=== PATIENT | female | born 1950 | race Caucasian/White ===

== ENCOUNTER → 2016-03-16 | Outpatient (CLI) | payer OTHER ==
[~2016-03-16] MED LIST: ARIP2TAB3 PO; ASPI81TA28 PO; ATR25 PO; EFFSR375 PO
--- NOTE | 2016-03-16 16:27 | MAMMOGRAPHY REPORT ---
BILATERAL DIGITAL SCREENING MAMMOGRAM TOMOSYNTHESIS WITH CAD: 03/16/2016 CLINICAL HISTORY: Routine screening. Patient has no complaints. TECHNIQUE: Breast tomosynthesis in addition to standard 2D mammography was performed. Current study was also evaluated with a Computer Aided Detection (CAD) system. COMPARISON: Comparison is made to exams dated: 03/08/2015 mammogram, 07/07/2012 mammogram, 07/10/2013 mammogram, 06/14/2011 mammogram, 06/02/2010 mammogram, and 02/20/2010 mammogram - [facility]. BREAST COMPOSITION: There are scattered areas of fibroglandular density in both breasts. FINDINGS: No suspicious masses, calcifications, or areas of architectural distortion are noted in e ither breast. There has been no significant interval change compared to prior exams. IMPRESSION: ACR BI-RADS CATEGORY 1: NEGATIVE There is no mammographic evidence of malignancy. A 1 year screening mammogram is recommended. The p atient will receive written notification of the results. Approximately 10% of breast cancers are not detected with mammography. A negative mammographic repor t should not delay biopsy if a clinically suggestive mass is present. Litzy Tidwell M.D. ah/:03/16/2016 15:04:43 Digital Media Designer: Arin KERN(Salomon)(M), [facility] letter sent: Normal 1/2 BI-RADS Code: ACR BI-RADS Category 1: Negative
== END | disposition home or self-care (01) ==
LOC: C.MAMM 08:42
PROVIDERS: ATTEND Internal Medicine
DX: Z12.31 Encounter for screening mammogram for malignant neoplasm of breast (principal)

== ENCOUNTER → 2017-03-11 | Outpatient (CLI) | payer OTHER | END | disposition home or self-care (01) | LOC: C.PAPS 09:56 | PROVIDERS: ATTEND Obstetrics & Gynecology | DX: Z12.4 Encounter for screening for malignant neoplasm of cervix (principal) ==

== ENCOUNTER → 2017-05-01 | Outpatient (CLI) | payer OTHER ==
[~2017-05-01] MED LIST changes: -EFFSR375 PO; +VENL-57 PO
--- NOTE | 2017-05-02 08:04 | MAMMOGRAPHY REPORT ---
BILATERAL DIGITAL SCREENING MAMMOGRAM TOMOSYNTHESIS WITH CAD: 05/01/2017 CLINICAL HISTORY: Routine screening. Patient has no complaints. TECHNIQUE: Breast tomosynthesis in addition to standard 2D mammography was performed. Current study was also evaluated with a Computer Aided Detection (CAD) system. COMPARISON: Comparison is made to exams dated: 03/16/2016 mammogram, 03/08/2015 mammogram, 07/10/2013 m ammogram, 07/07/2012 mammogram, 06/14/2011 mammogram, and 06/09/2010 ultrasound - [facility]. BREAST COMPOSITION: There are scattered areas of fibroglandular density in both breasts. FINDINGS: No suspicious masses, calcifications, or areas of architectural distortion are noted in ei ther breast. There has been no significant interval change compared to prior exams. Scattered bilater al benign-appearing calcifications are not significantly changed. IMPRESSION: ACR BI-RADS CATEGORY 2: BENIGN There is no mammographic evidence of malignancy. A 1 year screening mammogram is recommended. The pa tient will receive written notification of the results. Approximately 10% of breast cancers are not detected with mammography. A negative mammographic report should not delay biopsy if a clinically suggestive mass is present. Litzy Tidwell M.D. /:05/01/2017 14:53:37 Instructional Technology Facilitator: Socorro Bernabe, [facility] letter sent: Normal 1/2 BI-RADS Code: ACR BI-RADS Category 2: Benign
== END | disposition home or self-care (01) ==
LOC: C.MAMM 14:34
PROVIDERS: ATTEND Internal Medicine
DX: Z12.31 Encounter for screening mammogram for malignant neoplasm of breast (principal)

== ENCOUNTER 2023-06-07 10:56 | Inpatient (IN) ==
[2023-06-07 11:53] LABS: Basophils # (auto) 0.04 K/uL (0.00-0.20); Basophils % (auto) 0.3 %; Eosinophils # (auto) 0.05 K/uL (0.00-0.50); Eosinophils % (auto) 0.4 %; Hemoglobin 13.5 g/dl (12.0-16.0); Immature Granulocytes # (auto) 0.08 K/uL (0.01-0.20); Immature Granulocytes % (auto) 0.6 %; Lymphocytes # (auto) 1.78 K/uL (1.20-3.40); Lymphocytes % (auto) 13.8 %; Mean Corpuscular Hemoglobin 29.9 pg (25.0-34.0); Mean Corpuscular Hgb Conc 32.9 g/dL (32.0-36.0); Mean Corpuscular Volume 90.7 fL (80.0-100.0); Mean Platelet Volume 9.9 fL (9.4-12.4); Monocytes # (auto) 0.93 K/uL (0.11-0.59); Monocytes % (auto) 7.2 %; Neutrophils % (auto) 77.7 %; Platelet Count 310 K/uL (130-400); RDW Coefficient of Variation 12.9 % (11.5-14.5); RDW Standard Deviation 42.5 fL (36.4-46.3); Red Blood Count 4.52 M/uL (4.20-5.40); White Blood Count 12.88 K/ul (4.8-10.8)
[2023-06-07 12:01] LABS: Appearance Urine Clear (Clear); Bacteria Urine Automated None Seen (None Seen); Bilirubin Urine Negative (Negative); Blood Urine Negative (Negative); Cast Urine Automated 0-2 /lpf (0-2); Color Urine Dark Yellow; Epithelial Cell Urine Auto 0-2 /hpf (0-2); Glucose Urine UA Negative (Negative); Ketones Urine 1+ (Negative); Leukocyte Esterase Urine Negative (Negative); Nitrite Urine Negative (Negative); Protein Urine Trace (Negative); RBC Urine Automated 0-2 /hpf (0-2); Specific Gravity Urine 1.019 (1.000-1.030); Urobilinogen Urine Negative (Negative); WBC Urine Automated 0-5 /hpf (0-5); pH Urine 5.5 (4.5-7.5)
[2023-06-07 12:11] LABS: Albumin Globulin Ratio 1.1 (0.9-2); Albumin Level 4.1 gm/dl (3.4-5.0); BUN Creatinine Ratio 19.6 (10-20); Bilirubin,Total 1.1 mg/dl (0.2-1.0); Calcium 9.6 mg/dl (8.6-10.3); Creatinine Clr Calc Pharmacy 56.1 ml/min; Est GFR (African American) 73.1 ml/min; Est GFR (Non-African American) 63.1 ml/min; Globulin 3.7 gm/dl (2.5-4.0); Potassium 3.6 mmol/L (3.5-5.1); Total Protein 7.8 gm/dl (6.0-8.3)
--- NOTE | 2023-06-07 12:54 | Emergency Department Note ---
Impression & Plan Acute diverticulitis ED Provider Note NAME: JENNIFER SUN AGE: 72 SEX: F : 1950 ARRIVES VIA: Walk-In INFORMANT: Patient, ED PROVIDER(S): Prema Dietrich MD CHIEF COMPLAINT: Lower abdominal pain HPI: This is a 72-year-old female presenting for lower abdominal pain. Patient states that 1 to 2 days ago she was mowing her lawn when she had a pothole and the handle of the lawnmower struck her lower abdomen. She noticed immediate pain however over the past 1 to 2 days it has been significantly worsening. Now whenever she moves it is significant painful. Pressing on this area also hurts. Pain is acting better and actually getting worse. She notes dark urine including history of dark red in etiology. Denies any burning or pain with urination. Also notes new or back pain over the past 1 day as well in her lower back. No blood thinners on board. ROS: See above HPI for pertinent positives & negatives. A total of 10 systems reviewed and were otherwise negative. PAST MEDICAL HISTORY: See Below PAST SURGICAL HISTORY: See Below FAMILY HISTORY: See Below SOCIAL HISTORY: See Below HOME MEDICATIONS: See Below ALLERGIES: See Below VITALS: See Below PHYSICAL EXAMINATION: General: resting comfortably in no acute distress Head: Normocephalic and atraumatic Eyes: Normal inspection, extraocular muscles intact Ear, nose, throat: Normal external exam Neck: Normal range of motion Respiratory: lungs clear to auscultation bilaterally Cardiovascular: Regular rate/rhythm, no murmur GI: Diffusely tender, significant lower quadrant with voluntary guarding Extremities: nontender, moves all extremities Neuro: The patient awake and alert, appropriately conversive, no focal deficits, symmetric faces Skin: Warm, dry, and intact MEDICAL DECISION MAKING: This is a 72-year-old female sent for lower abdominal pain after lawnmower injury. Will do CT of the abdomen/pelvis to help elucidate further. Consider bladder rupture, abdominal bleed, damage underlying structures, hematoma -CT imaging reveals leukocytosis 12.8. Otherwise no electrolyte disturbances. Urinalysis reveals no UTI -CT imaging reveals an acute diverticulitis with small foci of air concerning for microperforation versus inflamed diverticulum -Discussed care with Dr. Montelongo including patient's history, CT imaging and blood work who recommends antibiotics. The patient can be admitted with surgical consult if warranted or discharge if appropriate as per his recommendations. With patient's current pain and after discussion with patient, she would also prefer to be admitted. -Patient admitted under Dr. Angel Differential diagnosis: See above ER treatment provided: See below Diagnostics interpreted by me: ECG: None Cardiac Monitoring: An order was placed for continuous cardiac monitoring. The monitor shows a rate of 71 with sinus rhythm. Laboratory studies: As stated above and show below. Imaging studies: See below. Past Med/Surg History Medical History (Updated 06/07/23 @ 18:43 by Prema Dietrich MD) Hypertension Cataract Depression Anxiety Surgical History History of right cataract surgery (~01/12/19) History of left cataract surgery (~10/20/18) History of colonoscopy (~06/22/16) History of hysterectomy History of bilateral tubal ligation History of tonsillectomy Family History Mother Lung cancer Daughter Diabetes Father Hypertension Sister Breast cancer Aunt Breast cancer Grandfather (Maternal) Myocardial infarction Brother Prostate cancer Other Cancer Denies family history of Ovarian cancer Colorectal cancer Social History Smoking Status: Never smoker Second Hand Exposure: No; Do You Dip or Chew Tobacco: No; Hx Alcohol Use: Yes Alcohol type: wine Hx Substance Use: No Preferred Language: Upper Sorbian Communication Ability: Effective Hearing Ability: Normal Tube Worker Required: No Beliefs That Will Affect Care: None marital status: Current Living Situation: Significant Other current occupational status: retired Feels Safe at Home: Yes Dental Care, Regularly: Yes Physical Activity Frequency: Does not Exercise Seatbelt Use: always Sunscreen Use: Yes Assistive Devices: Glasses Allergies Allergies Allergy/AdvReac Type Severity Reaction Status Date / Time erythromycin base Allergy Unknown nausea Verified 04/11/23 09:24 Sulfa (Sulfonamide Allergy Unknown Rash Verified 04/11/23 09:24 Antibiotics) valsartan AdvReac Cramping Uncoded 04/11/23 09:24 of the Muscles Home Meds Home Medications Medication Instructions Recorded Confirmed cholecalciferol (vitamin D3) 50 50 mcg PO DAILY 07/24/22 06/07/23 mcg (2,000 unit) capsule aspirin 81 mg tablet,delayed 81 mg PO QAM 11/11/22 06/07/23 release buspirone 10 mg tablet 10 mg PO DAILY 12/25/22 06/07/23 Previous Rx's Medication Instructions Recorded atorvastatin 20 mg tablet 20 mg PO DAILY #90 tabs 12/06/22 lisinopril 10 mg tablet 10 mg PO DAILY #90 tabs 01/30/23 duloxetine 30 mg capsule,delayed 30 mg PO DAILY #90 caps 03/29/23 release duloxetine 60 mg capsule,delayed 60 mg PO DAILY #90 caps 03/29/23 release Results & Data (ED) Vital Signs Vital Signs - 24 hr 06/07/23 11:15 06/07/23 12:06 06/07/23 14:49 Temperature 36.5 C Temperature Source Oral Pulse Rate 85 84 Pulse Rate [Apical] 74 Pulse Rate from SpO2 Sensor Respiratory Rate 18 19 Respiratory Effort / Characteristics Non-Labored Spontaneous Respiratory Depth Normal Respiratory Pattern Regular Blood Pressure Blood Pressure [Right Arm] 139/79 Blood Pressure Mean Blood Pressure Mean [Right Arm] 99 Blood Pressure Position Sitting Pulse Oximetry 98 98 Oxygen Delivery Method Room Air Room Air Sepsis Recent Fever Within 48 Hours No Sepsis New/Unexplained Change in Mental Status No Sepsis Action Taken by Nursing No Action Required 06/07/23 15:00 06/07/23 15:30 06/07/23 16:00 Temperature Temperature Source Pulse Rate 79 77 82 Pulse Rate [Apical] Pulse Rate from SpO2 Sensor 79 76 83 Respiratory Rate 22 13 17 Respiratory Effort / Characteristics Respiratory Depth Respiratory Pattern Blood Pressure Blood Pressure [Right Arm] Blood Pressure Mean Blood Pressure Mean [Right Arm] Blood Pressure Position Pulse Oximetry 95 96 96 Oxygen Delivery Method Sepsis Recent Fever Within 48 Hours Sepsis New/Unexplained Change in Mental Status Sepsis Action Taken by Nursing 06/07/23 16:10 06/07/23 16:30 06/07/23 17:00 Temperature Temperature Source Pulse Rate 89 83 82 Pulse Rate [Apical] Pulse Rate from SpO2 Sensor 82 83 Respiratory Rate 19 21 Respiratory Effort / Characteristics Respiratory Depth Respiratory Pattern Blood Pressure Blood Pressure [Right Arm] Blood Pressure Mean Blood Pressure Mean [Right Arm] Blood Pressure Position Pulse Oximetry 96 97 Oxygen Delivery Method Sepsis Recent Fever Within 48 Hours Sepsis New/Unexplained Change in Mental Status Sepsis Action Taken by Nursing 06/07/23 17:17 06/07/23 17:17 06/07/23 17:30 Temperature Temperature Source Pulse Rate 78 Pulse Rate [Apical] Pulse Rate from SpO2 Sensor 77 Respiratory Rate 13 Respiratory Effort / Characteristics Respiratory Depth Respiratory Pattern Blood Pressure 147/73 H 147/73 H Blood Pressure [Right Arm] Blood Pressure Mean 101 101 Blood Pressure Mean [Right Arm] Blood Pressure Position Pulse Oximetry 94 Oxygen Delivery Method Sepsis Recent Fever Within 48 Hours Sepsis New/Unexplained Change in Mental Status Sepsis Action Taken by Nursing 06/07/23 17:30 06/07/23 18:00 06/07/23 18:00 Temperature Temperature Source Pulse Rate 73 71 Pulse Rate [Apical] Pulse Rate from SpO2 Sensor 73 71 Respiratory Rate 18 18 Respiratory Effort / Characteristics Respiratory Depth Respiratory Pattern Blood Pressure 137/85 Blood Pressure [Right Arm] Blood Pressure Mean 91 Blood Pressure Mean [Right Arm] Blood Pressure Position Pulse Oximetry 95 94 Oxygen Delivery Method Room Air Room Air Sepsis Recent Fever Within 48 Hours Sepsis New/Unexplained Change in Mental Status Sepsis Action Taken by Nursing Laboratory Data 06/07/23 11:31 06/07/23 11:31 Lab Results 06/07/23 06/07/23 Range/Units 11:25 11:31 WBC 12.88 H (4.8-10.8) K/ul RBC 4.52 (4.20-5.40) M/uL Hgb 13.5 (12.0-16.0) g/dl Hct 41.0 (37.0-47.0) % MCV 90.7 (80.0-100.0) fL MCH 29.9 (25.0-34.0) pg MCHC 32.9 (32.0-36.0) g/dL RDW Std Deviation 42.5 (36.4-46.3) fL RDW Coeff of Jazmín 12.9 (11.5-14.5) % Plt Count 310 (130-400) K/uL MPV 9.9 (9.4-12.4) fL Immature Gran % (Auto) 0.6 % Neut % (Auto) 77.7 % Lymph % (Auto) 13.8 % Caval[place] % (Auto) 7.2 % Eos % (Auto) 0.4 % Baso % (Auto) 0.3 % Neut # (Auto) 10.00 H (1.40-6.50) K/uL Lymph # (Auto) 1.78 (1.20-3.40) K/uL [place]ier # (Auto) 0.93 H (0.11-0.59) K/uL Eos # (Auto) 0.05 (0.00-0.50) K/uL Baso # (Auto) 0.04 (0.00-0.20) K/uL Immature Gran # (Auto) 0.08 (0.01-0.20) K/uL Sodium 136 (136-145) mmol/L Potassium 3.6 (3.5-5.1) mmol/L Chloride 102 (98-107) mmol/L Carbon Dioxide 26 (21-32) mmol/L Anion Gap 8 (3-11) BUN 18 (6-23) mg/dl Creatinine 0.92 (0.6-1.2) mg/dl Est Cr Clr Drug Dosing 56.1 ml/min Est GFR ( Amer) 73.1 ml/min Est GFR (Non-Af Amer) 63.1 ml/min BUN/Creatinine Ratio 19.6 (10-20) Glucose 91 (70-99(Fasting)) mg/dl Calcium 9.6 (8.6-10.3) mg/dl Total Bilirubin 1.1 H (0.2-1.0) mg/dl AST 15 (13-39) U/L ALT 13 (7-52) U/L Alkaline Phosphatase 102 (34-104) U/L Total Protein 7.8 (6.0-8.3) gm/dl Albumin 4.1 (3.4-5.0) gm/dl Globulin 3.7 (2.5-4.0) gm/dl Albumin/Globulin Ratio 1.1 (0.9-2) Lipase 5 L (11-82) U/L Urine Color Dark Yellow Urine Appearance Clear (Clear) Urine pH 5.5 (4.5-7.5) Ur Specific [place] 1.019 (1.000-1.030) Urine Protein Trace H (Negative) Urine Glucose (UA) Negative (Negative) Urine Ketones 1+ H (Negative) Urine Blood Negative (Negative) Urine Nitrite Negative (Negative) Urine Bilirubin Negative (Negative) Urine Urobilinogen Negative (Negative) Ur Leukocyte Esterase Negative (Negative) Urine WBC (Auto) 0-5 (0-5) /hpf Urine RBC (Auto) 0-2 (0-2) /hpf U Hyaline Cast (Auto) 0-2 (0-2) /lpf U Epithel Cells (Auto) 0-2 (0-2) /hpf Urine Bacteria (Auto) None Seen (None Seen) Administered Medications Metronidazole (Flagyl) 500 mg in 100 mls @ 100 mls/hr IV Q12H ZAHIRA; Protocol Stop: 06/09/23 14:44 Last Infusion: 06/07/23 16:43 Dose: Infused Documented By: Admin: 06/07/23 15:28 Dose: 100 mls/hr Documented By: GERALD Discontinued Medications Ciprofloxacin (Cipro / D5w) 400 mg in 200 mls @ 100 mls/hr IV NOW STA; Protocol Stop: 06/07/23 16:31 Last Infusion: 06/07/23 18:08 Dose: Infused Documented By: Admin: 06/07/23 15:28 Dose: 100 mls/hr Documented By: GERALD Acetaminophen (Ofirmev) 1,000 mg in 100 mls @ 400 mls/hr IV NOW STA Stop: 06/07/23 17:00 Last Infusion: 06/07/23 17:09 Dose: Infused Documented By: Admin: 06/07/23 16:53 Dose: 400 mls/hr Documented By: GERALD Ioversol (Optiray 320 100ml) 93 ml IV ONCE ONE Stop: 06/07/23 13:38 Last Admin: 06/07/23 13:37 Dose: 93 ml Documented By: KSF Imaging Data Radiologist's Impression: Abdomen/Pelvis CT 06/07/23 11:[address] WITH IV CONTRAST CT DOSE: 1031.54 mGy.cm HISTORY: lower abd pain after lawnmower to abdomen TECHNIQUE: Multiaxial CT images of the abdomen and pelvis were performed following the use of intravenous contrast. A dose lowering technique was utilized adhering to the principles of ALARA. COMPARISON STUDY: Abdomen and pelvis CT 10/17/2018. FINDINGS: There is a 4 mm subpleural nodule within the right middle lobe on image 25. Mild dependent changes seen at the lung bases. No acute fractures. The liver, gallbladder, pancreas, spleen, adrenal glands, and kidneys are unremarkable. No hydronephrosis. The main portal vein is patent. Normal caliber abdominal aorta. No retroperitoneal or pelvic lymphadenopathy. Normal bladder. Prior hysterectomy. Focal thickening within the mid sigmoid colon with pericolonic fat stranding consistent with acute diverticulitis. There is a punctate focus of gas along the superior border of the mid sigmoid colon on image 254. This may represent an inflamed diverticulum. A small focus of microperforation could also have a similar appearance. No abscess identified. No evidence for a bowel obstruction. Normal appendix. IMPRESSION: 1. Acute sigmoid diverticulitis. No abscess identified. There is a punctate focus of gas adjacent to the thickened mid sigmoid colon which may represent an inflamed diverticulum. A small focus of microperforation could also have a similar appearance. 2. No evidence for a bowel obstruction. 3. No acute traumatic process within the abdomen or pelvis. 4. Normal appendix. 5. A 4 mm subpleural nodule within the right middle lobe. Please refer to below summary of Fleischner criteria recommendations for follow- up of incidental CT nodules (Lan Orantes, Guidelines for management of small pulmonary nodules detected on CT scans: A statement from the Fleischner Society, Radiology 237: [phone].) SOLID NODULES Solitary nodule size: <6 mm * Low risk patients: no follow-up needed * high risk patients: optional CT at 12 months Solitary nodule size: 6-8 mm * Low risk patients: follow-up at 6-12 months, then consider further follow-up at 18-24 months * high risk patients: initial follow-up CT at 6-12 months and then at 18-24 months if no change Solitary nodule size: >8 mm * either low or high risk patients - consider follow-up CT at 3 months, and/or CT-PET, and/or biopsy Multiple nodules size: <6 mm * Low risk patients: no routine follow-up * high risk patients: optional CT at 12 months Multiple nodules size: 6-8 mm * Low risk patients: follow-up at 3-6 months, then consider further follow-up at 18-24 months * high risk patients: follow-up at 3-6 months, then at 18-24 months if no change Multiple nodules size: >8 mm * Low risk patients: follow-up at 3-6 months, then consider further follow-up at 18-24 months * high risk patients: follow-up at 3-6 months, then at 18-24 months if no change Note: newly detected indeterminate nodule in persons 35 years of age or older. * Low risk patients: minimal or absent history of smoking and/or other known risk factors * high risk patients: history of smoking or of other known risk factors (e.g. first degree relative with lung cancer, or exposure to asbestos, radon, uranium) * if a nodule up to 8 mm is partly solid or is ground glass further follow-up is required after 24 months to exclude possible slow growing adenocarcinoma (FRANKO) SUBSOLID NODULES Solitary pure ground-glass nodule * nodule size <6 mm - no CT follow-up required * nodule size >=6 mm - follow-up CT at 6-12 months, then every 2 years until 5 years Solitary part-solid nodule * nodule size <6 mm - no CT follow-up required * nodule size >=6 mm - follow-up CT at 3-6 months. If unchanged, and solid component remains <6 mm, then annual follow-up for 5 years Multiple subsolid nodules * nodule size <6 mm - follow-up CT at 3-6 months, consider further follow-up at 2 and 4 years if stable * nodule size >=6 mm - follow-up CT at 3-6 months, subsequent management based on the most suspicious nodule(s) ACT 112: Negative or not required by law. Electronically signed by: Satish Corbett M.D. 06/07/2023 2:07 PM Discharge Plan Visit Data Chief Complaint: Abdominal Pain Stated Complaint: LOWER ABD PAIN ED Provider: Prema Dietrich Discharge Problem: Acute diverticulitis Forms Stand Alone Forms: My [facility] Prescriptions Prescriptions: No Action atorvastatin 20 mg tablet 20 mg PO DAILY Qty: 90 3RF Hold Instructions: while on paxlovid lisinopril 10 mg tablet 10 mg PO DAILY Qty: 90 3RF duloxetine 60 mg capsule,delayed release(DR/EC) 60 mg PO DAILY Qty: 90 3RF Rx Instructions: in addition to 30mg caps to equal 90mg daily duloxetine 30 mg capsule,delayed release(DR/EC) 30 mg PO DAILY Qty: 90 3RF buspirone 10 mg tablet 10 mg PO DAILY cholecalciferol (vitamin D3) 50 mcg (2,000 unit) capsule 50 mcg PO DAILY aspirin [Aspirin Low-Strength] 81 mg Tablet,Delayed Release (Dr/Ec) 81 mg PO QAM Referrals Referrals: Opal Sanchez CRNP [Primary Care Provider] -
[2023-06-07] MEDS: OPTIRAY 320 100ml IV ONE (13:37)
--- NOTE | 2023-06-07 14:08 | CT Scan Report ---
ABDOMEN AND PELVIS CT WITH IV CONTRAST CT DOSE: 1031.54 mGy.cm HISTORY: lower abd pain after lawnmower to abdomen TECHNIQUE: Multiaxial CT images of the abdomen and pelvis were performed following the use of intrave nous contrast. A dose lowering technique was utilized adhering to the principles of ALARA. COMPARISON STUDY: Abdomen and pelvis CT 10/17/2018. FINDINGS: There is a 4 mm subpleural nodule within the right middle lobe on image 25. Mild dependent changes seen at the lung bases. No acute fractures. The liver, gallbladder, pancreas, spleen, adrenal glands, and kidneys are unremarkable. No hydronephrosis. The main portal vein is patent. Normal dulce christy abdominal aorta. No retroperitoneal or pelvic lymphadenopathy. Normal bladder. Prior hysterectomy . Focal thickening within the mid sigmoid colon with pericolonic fat stranding consistent with acute diverticulitis. There is a punctate focus of gas along the superior border of the mid sigmoid colon o n image 254. This may represent an inflamed diverticulum. A small focus of microperforation could als o have a similar appearance. No abscess identified. No evidence for a bowel obstruction. Normal appen jennifer. IMPRESSION: 1. Acute sigmoid diverticulitis. No abscess identified. There is a punctate focus of gas adjacent to the thickened mid sigmoid colon which may represent an inflamed diverticulum. A small focus of microp erforation could also have a similar appearance. 2. No evidence for a bowel obstruction. 3. No acute traumatic process within the abdomen or pelvis. 4. Normal appendix. 5. A 4 mm subpleural nodule within the right middle lobe. Please refer to below summary of Fleischner criteria recommendations for follow-up of incidental CT n odules (Lan Orantes, Guidelines for management of small pulmonary nodules detected on CT scans: A sta tement from the Fleischner Society, Radiology 237: [phone].) SOLID NODULES Solitary nodule size: <6 mm * Low risk patients: no follow-up needed * high risk patients: optional CT at 12 months Solitary nodule size: 6-8 mm * Low risk patients: follow-up at 6-12 months, then consider further follow-up at 18-24 months * high risk patients: initial follow-up CT at 6-12 months and then at 18-24 months if no change Solitary nodule size: >8 mm * either low or high risk patients - consider follow-up CT at 3 months, and/or CT-PET, and/or biopsy Multiple nodules size: <6 mm * Low risk patients: no routine follow-up * high risk patients: optional CT at 12 months Multiple nodules size: 6-8 mm * Low risk patients: follow-up at 3-6 months, then consider further follow-up at 18-24 months * high risk patients: follow-up at 3-6 months, then at 18-24 months if no change Multiple nodules size: >8 mm * Low risk patients: follow-up at 3-6 months, then consider further follow-up at 18-24 months * high risk patients: follow-up at 3-6 months, then at 18-24 months if no change Note: newly detected indeterminate nodule in persons 35 years of age or older. * Low risk patients: minimal or absent history of smoking and/or other known risk factors * high risk patients: history of smoking or of other known risk factors (e.g. first degree relative with lung cancer, or exposure to asbestos, radon, uranium) * if a nodule up to 8 mm is partly solid or is ground glass further follow-up is required after 24 m onths to exclude possible slow growing adenocarcinoma (FRANKO) SUBSOLID NODULES Solitary pure ground-glass nodule * nodule size <6 mm - no CT follow-up required * nodule size >=6 mm - follow-up CT at 6-12 months, then every 2 years until 5 years Solitary part-solid nodule * nodule size <6 mm - no CT follow-up required * nodule size >=6 mm - follow-up CT at 3-6 months. If unchanged, and solid component remains <6 mm, then annual follow-up for 5 years Multiple subsolid nodules * nodule size <6 mm - follow-up CT at 3-6 months, consider further follow-up at 2 and 4 years if sta ble * nodule size >=6 mm - follow-up CT at 3-6 months, subsequent management based on the most suspiciou s nodule(s) ACT 112: Negative or not required by law. Electronically signed by: Satish Corbett M.D. 06/07/2023 2:07 PM
[2023-06-07] MEDS: CIPROFLOXACIN / D5W 400 MG/200 ML BAG IV STA (15:28)
[2023-06-07] MEDS: metroNIDAZOLE 500 MG/100 ML BAG IV SCH (15:28)
[2023-06-07] MEDS: ACETAMINOPHEN 1,000 MG/100 ML VIAL IV STA (16:53)
--- NOTE | 2023-06-07 17:31 | History & Physical Report ---
Date of Service June 07, 2023 Assessment & Plan (1) Acute diverticulitis: Plan: Acute diverticulitis With leukocytosis, approximately 2 days of symptoms Given ciprofloxacin/Flagyl while in the ER. Patient is allergic to sulfa, no history of penicillin allergy Transition to Unasyn on admission with Augmentin is reasonable p.o. target There is a small focus of? Inflamed diverticulum versus small microperforation on CT however there is no contralateral free air or no large volume free air. No abscess is appreciated. No indication for acute surgical intervention is present, will continue medical management. If dental pain is worsening, patient develops guarding, or concern for acute/surgical abdomen develops make n.p.o., and repeat CT Clears. Continue LR 125 cc/h until p.o. improves Scaled analgesic pain control (2) Hypertension: Plan: Hypertension Continue lisinopril (3) Anxiety: Plan: Anxiety Continue home duloxetine (4) Hypercholesteremia: Plan: Hyperlipidemia Continue statin (5) Lung nodule: Plan: CT shows right middle lobe 4 mm subpleural nodule is present. She does not have a history of pulmonary risk factors, is a non-smoker; however is of older age so could be considered increased risk by age. Patient's mother was a heavy smoker but did have a history of lung cancer which was completely removed with a focal revision and had no recurrence. Discussed this nodule with the patient and that it is benign appearance, it is small. Given her family history and her acknowledging that she will have a high degree of anxiety knowing that there is a nodule, she would like to have a interval CT with her PCP at follow-up. She will follow-up with her PCP. Plan DVT prophylaxis: Lovenox Disposition: Medical surgical CODE STATUS: Full code Diet: Clears, advance as tolerated. If abdomen is clinically worsening make n.p.o. History of Present Illness Primary Care Provider: ERICA Savage is a 72-year-old female with past medical history of hyperlipidemia, vitamin D deficiency, anxiety, hypertension, depression who presents after she was mowing her lawn and had the handle of a lawnmower strike her lower abdomen when she had a pothole, and since then has had 1 to 2 days of gradually worsening pain and the development of dark red urine. She is not on anticoagulation. On ER evaluation she has a leukocytosis, dark urine with some protein but which is negative for blood and is not infected. She is seen the bedside. She reports for the last 2 days she has had progressively worsening right lower quadrant pain which has spread somewhat to her left lower quadrant. She is hungry. She denies fever, chills, sweats. Denies dysuria no chest pain chest pressure shortness of breath. She has no history of heart disease, lung disease, or kidney disease. She has not had diverticulitis before, but has multiple family members who have had this. She did take her medications this morning. She is allergic to sulfa, no other medication allergies. No penicillin allergy. No additional questions or concerns at bedside. No tobacco use, no alcohol use. Full code, reviewed with patient and her son at bedside Allergies Allergy/AdvReac Type Severity Reaction Status Date / Time erythromycin base Allergy Unknown nausea Verified 04/11/23 09:24 Sulfa (Sulfonamide Allergy Unknown Rash Verified 04/11/23 09:24 Antibiotics) valsartan AdvReac Cramping Uncoded 04/11/23 09:24 of the Muscles Home Medications Medication Instructions Recorded Confirmed Type cholecalciferol (vitamin D3) 50 50 mcg PO DAILY 07/24/22 06/07/23 History mcg (2,000 unit) capsule aspirin 81 mg tablet,delayed 81 mg PO QAM 11/11/22 06/07/23 History release atorvastatin 20 mg tablet 20 mg PO DAILY #90 tabs 12/06/22 06/07/23 Rx buspirone 10 mg tablet 10 mg PO DAILY 12/25/22 06/07/23 History lisinopril 10 mg tablet 10 mg PO DAILY #90 tabs 01/30/23 06/07/23 Rx duloxetine 30 mg capsule,delayed 30 mg PO DAILY #90 caps 03/29/23 06/07/23 Rx release duloxetine 60 mg capsule,delayed 60 mg PO DAILY #90 caps 03/29/23 06/07/23 Rx release Past Med/Surg History Medical History (Updated 06/07/23 @ 17:51 by Konrad Angel MD) Hypertension Cataract Depression Anxiety Surgical History History of right cataract surgery (~01/12/19) History of left cataract surgery (~10/20/18) History of colonoscopy (~06/22/16) History of hysterectomy History of bilateral tubal ligation History of tonsillectomy Family History Mother Lung cancer Daughter Diabetes Father Hypertension Sister Breast cancer Aunt Breast cancer Grandfather (Maternal) Myocardial infarction Brother Prostate cancer Other Cancer Denies family history of Ovarian cancer Colorectal cancer Social History Smoking Status: Never smoker Second Hand Exposure: No; Do You Dip or Chew Tobacco: No; Hx Alcohol Use: Yes Alcohol type: wine Hx Substance Use: No Preferred Language: Romanian Communication Ability: Effective Hearing Ability: Normal Metal Polisher Required: No Beliefs That Will Affect Care: None marital status: Current Living Situation: Significant Other current occupational status: retired Feels Safe at Home: Yes Dental Care, Regularly: Yes Physical Activity Frequency: Does not Exercise Seatbelt Use: always Sunscreen Use: Yes Assistive Devices: Glasses Physical Exam Physical Exam: General: A&Ox3. NAD. Cooperative. HEENT: Atraumatic, normocephalic. Pulm: CTAB A&P. Symmetrical chest rise. No increased work of breathing. No respiratory distress. Cardiac: RRR, -mrg. Radial pulses intact and symmetrical. Abdominal: Tender to palpation at the right lower quadrant left lower quadrant without rebound or involuntary guarding. Nondistended. Results & Data Results & Data Vital Signs (Past 12 Hours) Vital Signs Temp Pulse Pulse Resp BP Pulse Ox O2 Del Method 06/07/23 16:10 89 06/07/23 14:49 74 19 139/79 98 Room Air 06/07/23 12:06 84 06/07/23 11:15 36.5 C 85 18 98 Room Air PG Care Time/CCT Total # of Minutes Spent Total Time Spent with Patient: Total time spent is greater than 50% in coordination of care (as documented) at patient's floor/unit and/or counseling patient: Coding Level of Care Code 25969 INT INP/OBS CARE 3/75MIN Diagnoses Acute diverticulitis K57.92 Hypertension I10 Anxiety F41.9 Hypercholesteremia E78.00 Lung nodule R91.1
[2023-06-07] MEDS ORDERED: ACETAMINOPHEN 325 MG TAB PO PRN (21:36)
[2023-06-07] MEDS ORDERED: POLYETHYLENE (MIRALAX) 17 GM PACK PO PRN (21:36)
[2023-06-07] MEDS ORDERED: ONDANSETRON INJ 2 MG/ML 2 ML VIAL IV PRN (21:36)
[2023-06-07] MEDS: AMPICILLIN/SULBACTAM SOD 3,000 MG in SODIUM CHLOR 0.9% MINI-B 100 ML IV SCH (22:43)
[2023-06-08 06:57] LABS: Basophils # (auto) 0.03 K/uL (0.00-0.20); Basophils % (auto) 0.4 %; Eosinophils # (auto) 0.12 K/uL (0.00-0.50); Eosinophils % (auto) 1.5 %; Hematocrit (blood only) 37.2 % (37.0-47.0); Immature Granulocytes # (auto) 0.04 K/uL (0.01-0.20); Immature Granulocytes % (auto) 0.5 %; Lymphocytes # (auto) 1.05 K/uL (1.20-3.40); Lymphocytes % (auto) 13.4 %; Mean Corpuscular Hemoglobin 29.8 pg (25.0-34.0); Mean Corpuscular Hgb Conc 32.3 g/dL (32.0-36.0); Mean Corpuscular Volume 92.3 fL (80.0-100.0); Mean Platelet Volume 9.8 fL (9.4-12.4); Monocytes # (auto) 0.81 K/uL (0.11-0.59); Monocytes % (auto) 10.3 %; Neutrophils # (auto) 5.81 K/uL (1.40-6.50); Neutrophils % (auto) 73.9 %; Platelet Count 272 K/uL (130-400); RDW Coefficient of Variation 12.9 % (11.5-14.5); RDW Standard Deviation 43.4 fL (36.4-46.3); Red Blood Count 4.03 M/uL (4.20-5.40); White Blood Count 7.86 K/ul (4.8-10.8)
[2023-06-08 07:08] LABS: BUN Creatinine Ratio 20.2 (10-20); Calcium 9.1 mg/dl (8.6-10.3); Creatinine Clr Calc Pharmacy 58.4 ml/min; Est GFR (African American) 76.1 ml/min; Est GFR (Non-African American) 65.7 ml/min; Potassium 4.3 mmol/L (3.5-5.1)
--- NOTE | 2023-06-08 08:15 | Hospitalist Progress Note ---
Date of Service June 08, 2023 Assessment & Plan (1) Acute diverticulitis: Plan: Acute diverticulitis WBC 12.88 downtrending Given ciprofloxacin/Flagyl while in the ER. Transition to Unasyn on admission with Augmentin is reasonable p.o. target There is a small focus of? Inflamed diverticulum versus small microperforation on CT however there is no contralateral free air or no large volume free air. No abscess is appreciated. No indication for acute surgical intervention is present, will continue medical management. If dental pain is worsening, patient develops guarding, or concern for acute/surgical abdomen develops make n.p.o., and repeat CT Clear liquid diet. Continue LR 125 cc/h until p.o. improves Scaled analgesic pain control -ordered stool softeners -trend CBC (2) Hypertension: Plan: Hypertension Continue lisinopril (3) Anxiety: Plan: Anxiety Continue home duloxetine, buspirone (4) Hypercholesteremia: Plan: Hyperlipidemia Continue statin (5) Lung nodule: Plan: CT shows right middle lobe 4 mm subpleural nodule is present. She does not have a history of pulmonary risk factors, is a non-smoker; however is of older age so could be considered increased risk by age. Patient's mother was a heavy smoker but did have a history of lung cancer which was completely removed with a focal revision and had no recurrence. Discussed this nodule with the patient and that it is benign appearance, it is small. Given her family history and her acknowledging that she will have a high degree of anxiety knowing that there is a nodule, she would like to have a interval CT with her PCP at follow-up. She will follow-up with her PCP. Plan DVT prophylaxis: Lovenox Disposition: Medical surgical CODE STATUS: Full code Diet: Clears, advance as tolerated. If abdomen is clinically worsening make n.p.o. Admission and Anticipated Discharge Date Admission Date: June 07, 2023 Supervising Physician Co-Signing Physician Notes I personally examined the patient and verified all campos points of history and exam, discussed case, and agree with decision making with Dr Platt feeling better belly still hurts but better. tolerated clears well vitals noted nad heent nc at mmm breathing unlabored no accessory muscles good effort abd soft (+) very tender LLQ no guarding no rebound diverticulitis w microperforation - ongoing IV abx, clear liquid diet, serial ex ams, pain control DVT proph - lovenox otherwise as above Subjective Patient seen at bedside, calm comfortable cooperative. Tolerated clear liquid d iet well. States she has chronic constipation would like stool softener. Patient has some pain across lower abd. Denies SOB nausea. Physical Exam Constitutional: WD/WN, vitals as above Eyes: PERRL, conjunctivae normal, anicteric sclerae ENMT: external ear and nose normal, oropharynx normal Respiratory: normal respiratory effort, lungs clear to auscultation Cardiovascular: Rate/Rhythm: regular rate and regular rhythm Gastrointestinal (Abdomen): Inspection/Auscultation: abdomen normal to inspection Percussion/Palpation: + abdomen tender ( LLQ) and abdomen soft Skin: no rashes, warm and dry Results & Data Results & Data Vital Signs (Past 12 Hours) Vital Signs Temp Pulse Pulse Pulse Resp BP Pulse Ox 06/08/23 07:58 37.1 C 69 16 115/69 95 06/07/23 21:20 36.9 C 68 14 153/77 H 95 06/07/23 21:20 06/07/23 20:48 67 18 142/80 H 96 06/07/23 20:31 67 O2 Del Method 06/08/23 07:58 Room Air 06/07/23 21:20 Room Air 06/07/23 21:20 Room Air 06/07/23 20:48 Room Air 06/07/23 20:31 Resident Activity Tracking Resident Involvement: Resident Care Provided Care Provided: Adult Hospital Medicine
[2023-06-08] MEDS: ATORVASTATIN 20 MG TAB PO SCH (08:17)
[2023-06-08] MEDS: ASPIRIN 81 MG ECTAB PO SCH (08:17)
[2023-06-08] MEDS: DULoxetine HCL 60 MG CAP PO SCH (08:18)
[2023-06-08] MEDS: ENOXAPARIN INJ 40 MG/0.4 ML SYR SQ SCH (08:18)
[2023-06-08] MEDS: busPIRone 5 MG TAB PO SCH (08:18)
[2023-06-08] MEDS: CHOLECALCIFEROL 25 MCG (1000 UNITS) TAB PO SCH (08:18)
[2023-06-08] MEDS: DULoxetine HCL 30 MG CAP PO SCH (08:18)
[2023-06-08] MEDS: lisinopril 10 MG TAB PO SCH (08:18)
[2023-06-08] MEDS ORDERED: DOCUSATE SODIUM/SENNA 50/8.6MG TAB PO PRN (09:56)
--- NOTE | 2023-06-08 16:41 | Billing Data ---
Date of Service June 08, 2023 Coding Level of Care Code 61781 SUB INP/OBS CARE MIN
--- NOTE | 2023-06-09 07:12 | Hospitalist Progress Note ---
Date of Service June 09, 2023 Assessment & Plan Admission and Anticipated Discharge Date Admission Date: June 07, 2023 Results & Data Results & Data Vital Signs (Past 12 Hours) Vital Signs Temp Pulse Resp BP Pulse Ox O2 Del Method 06/08/23 22:07 37.1 C 76 18 130/78 97 Room Air
[2023-06-09 07:26] LABS: Basophils # (auto) 0.02 K/uL (0.00-0.20); Basophils % (auto) 0.3 %; Eosinophils # (auto) 0.14 K/uL (0.00-0.50); Eosinophils % (auto) 2.2 %; Hematocrit (blood only) 36.6 % (37.0-47.0); Hemoglobin 12.1 g/dl (12.0-16.0); Immature Granulocytes # (auto) 0.03 K/uL (0.01-0.20); Immature Granulocytes % (auto) 0.5 %; Lymphocytes # (auto) 1.45 K/uL (1.20-3.40); Mean Corpuscular Hgb Conc 33.1 g/dL (32.0-36.0); Mean Corpuscular Volume 90.8 fL (80.0-100.0); Mean Platelet Volume 10.1 fL (9.4-12.4); Monocytes # (auto) 0.94 K/uL (0.11-0.59); Monocytes % (auto) 14.9 %; Neutrophils # (auto) 3.72 K/uL (1.40-6.50); Neutrophils % (auto) 59.1 %; Platelet Count 309 K/uL (130-400); RDW Coefficient of Variation 12.7 % (11.5-14.5); RDW Standard Deviation 42.3 fL (36.4-46.3); Red Blood Count 4.03 M/uL (4.20-5.40)
[2023-06-09 07:40] LABS: BUN Creatinine Ratio 13.5 (10-20); Calcium 9.1 mg/dl (8.6-10.3); Creatinine Clr Calc Pharmacy 58.4 ml/min; Est GFR (African American) 76.1 ml/min; Est GFR (Non-African American) 65.7 ml/min; Potassium 4.6 mmol/L (3.5-5.1)
[2023-06-09] MEDS: POLYETHYLENE (MIRALAX) 17 GM PACK PO SCH (08:04)
[2023-06-09] MEDS: AMOXICILLIN/CLAVULANATE 875 MG TAB PO ONE (12:04)
--- NOTE | 2023-06-09 12:06 | Discharge Summary ---
Date of Service June 09, 2023 Admission HPI Per Admitting Provider Odilia is a 72-year-old female with past medical history of hyperlipidemia, vitamin D deficiency, anxiety, hypertension, depression who presents after she was mowing her lawn and had the handle of a lawnmower strike her lower abdomen when she had a pothole, and since then has had 1 to 2 days of gradually worsening pain and the development of dark red urine. She is not on anticoagulation. On ER evaluation she has a leukocytosis, dark urine with some protein but which is negative for blood and is not infected. She is seen the bedside. She reports for the last 2 days she has had progressively worsening right lower quadrant pain which has spread somewhat to her left lower quadrant. She is hungry. She denies fever, chills, sweats. Denies dysuria no chest pain chest pressure shortness of breath. She has no history of heart disease, lung disease, or kidney disease. She has not had diverticulitis before, but has multiple family members who have had this. She did take her medications this morning. She is allergic to sulfa, no other medication allergies. No penicillin allergy. No additional questions or concerns at bedside. No tobacco use, no alcohol use. Full code, reviewed with patient and her son at bedside Admission Exam Per Admitting Provider General: A&Ox3. NAD. Cooperative. HEENT: Atraumatic, normocephalic. Pulm: CTAB A&P. Symmetrical chest rise. No increased work of breathing. No respiratory distress. Cardiac: RRR, -mrg. Radial pulses intact and symmetrical. Abdominal: Tender to palpation at the right lower quadrant left lower quadrant without rebound or involuntary guarding. Nondistended. Principal Diagnosis Diverticulitis Discharge Exam Constitutional WD/WN, vitals as above Eyes PERRL, conjunctivae normal, anicteric sclerae ENMT external ear and nose normal, oropharynx normal Respiratory normal respiratory effort, lungs clear to auscultation Cardiovascular Rate/Rhythm: regular rate and regular rhythm Gastrointestinal (Abdomen) Inspection/Auscultation: abdomen normal to inspection Percussion/Palpation: abdomen soft; abdomen nontender Skin no rashes, warm and dry Discharge Data Allergies Allergy/AdvReac Type Severity Reaction Status Date / Time erythromycin base Allergy Unknown nausea Verified 04/11/23 09:24 Sulfa (Sulfonamide Allergy Unknown Rash Verified 04/11/23 09:24 Antibiotics) valsartan AdvReac Unknown Muscle Pain Verified 06/07/23 21:45 Ordered Studies 06/07/23 11:46 CT abd pelvis IV con only Stat Hospital Course (1) Acute diverticulitis: Acute diverticulitis WBC 12.88 downtrending Given ciprofloxacin/Flagyl in ER. switched to Unasyn tolerated well, will discharge on Augmentin BID for 8 days, total 10 day abx, can extend to 14 days if limited improvement of symptoms There is a small focus of? Inflamed diverticulum versus small microperforation on CT however there is no contralateral free air or no large volume free air. No abscess is appreciated. No indication for acute surgical intervention is present, will continue medical management. Consider repeat CT A/P in 2-3 weeks to check for resolution Initially clear liquid diet, advanced to regular tolerated well Scaled analgesic pain control -ordered stool softeners, continue regular stool softeners after discharge (2) Hypertension: Hypertension Continue lisinopril (3) Anxiety: Anxiety Continue home duloxetine, buspirone (4) Hypercholesteremia: Hyperlipidemia Continue statin (5) Lung nodule: CT shows right middle lobe 4 mm subpleural nodule is present. She does not have a history of pulmonary risk factors, is a non-smoker; however is of older age so could be considered increased risk by age. Patient's mother was a heavy smoker but did have a history of lung cancer which was completely removed with a focal revision and had no recurrence. Discussed this nodule with the patient and that it is benign appearance, it is small. Given her family history and her acknowledging that she will have a high degree of anxiety knowing that there is a nodule, she would like to have a interval CT with her PCP at follow-up. She will follow-up with her PCP. Total Time Total Time Spent Total Time Spent (In Minutes): see attending attestation Discharge Plan Discharge Items Patient Disposition: Home - Self-Care Reason For Visit: DIVERTICULITIS WITH POSSIBLE MICROPERFORATION Discharge Diagnosis: Diverticulitis Activity: Resume your previous activity Non-emergency contact: Primary Care Provider Call non-emergency contact if: you have any medication questions, your symptoms worsen, your pain is concerning for you and you have a fever Follow-up/Referrals: Opal Sanchez CRNP [Primary Care Provider] - Diet: Regular Addtl Attending Provider Instructions: You were admitted to the hospital for Diverticulitis. You were treated with antibiotics, and your symptoms improved. Please complete your course of antibiotics after discharge from the hospital. You were incidentally found to have a 4mm lung nodule in your right lung. Given it's small size, this does not require further followup. Your CT abdomen may have shown a tiny gas bubble by your diverticulitis. Given your improvement of symptoms, we will recheck a CT abdomen after 2-3 weeks to track changes and improvement. A discharge summary will be sent to your primary care physician to ensure continuity of care. Please bring this discharge summary with you to your next office appointment so that your provider can review it at that time. Follow-up appointments: Make a follow-up appointment with your PCP within the next week. It is very important that you follow up with them shortly after discharge from the hospital. Keep all your follow-up appointments as already scheduled. If you cannot make an appointment, notify your provider. Medications: Your medication list has been reviewed and reconciled upon discharge to ensure accuracy and continuity of care. An updated list of all your medications is included with your hospital discharge paperwork. Please review this list closely, and make note of any changes. * We sent a new medication called Augmentin to your pharmacy. Take Augmentin 875mg one tablet twice a day for 8 days, starting with today's evening dose. * For your chronic constipation, we recommend you start a daily stool softener, either Miralax 1 capful daily or Docusate/Senna, with plenty of water. Take your medications as instructed; do not skip a dose of your medicines. Make sure all of your doctors know every medicine you are taking (including [id number] medicines, vitamins, and supplements). Call your primary care provider before taking any new medicines (including [id number] medicines, vitamins, and supplements), because some of these may interact with your current medications, or may make your symptoms worse. Tell your primary care provider if you cannot afford your medications. CONTACT YOUR PRIMARY CARE PROVIDER if you experience any of the following: Fever, chills, nausea Persistent or worsening abdominal pain Difficulty following your treatment plan, or difficulty taking medications CALL 911 OR GO TO THE EMERGENCY DEPARTMENT if you experience any of the following: Sudden, severe abdominal pain or nausea/vomiting Severe chest pain, or chest pain that radiates (moves) to your jaw or arm Sudden, severe shortness of breath or difficulty breathing Thank you for allowing us to participate in your care. Pending Studies at Discharge: No Stand-Alone Forms: [facility], Smoking Cessation Medications and DC Order Prescriptions: New amoxicillin-pot clavulanate 875-125 mg tablet 1 tab PO BID Qty: 24 0RF Rx Instructions: next dose in PM 06/08 Continued atorvastatin 20 mg tablet 20 mg PO DAILY Qty: 90 3RF Hold Instructions: while on paxlovid lisinopril 10 mg tablet 10 mg PO DAILY Qty: 90 3RF duloxetine 60 mg capsule,delayed release(DR/EC) 60 mg PO DAILY Qty: 90 3RF Rx Instructions: in addition to 30mg caps to equal 90mg daily duloxetine 30 mg capsule,delayed release(DR/EC) 30 mg PO DAILY Qty: 90 3RF buspirone 10 mg tablet 10 mg PO DAILY cholecalciferol (vitamin D3) 50 mcg (2,000 unit) capsule 50 mcg PO DAILY aspirin 81 mg Tablet,Delayed Release (Dr/Ec) 81 mg PO QAM Discharge Orders: Discharge Order (Routine); Ordered 06/09/23 Ordered By: Olga Lidia Bianchi/Other Patient Handouts: Low-Fiber Diet, Diverticulitis Dc Admission Data Admit Date/Time: 06/07/23 17:33 Attending Provider: Miguel Salgado Admit Provider: Konrad Angel Primary Care Provider: Opal Sanchez Other Interventions: Discharge Summary Assessment (RN) Last Done: 06/09/23 12:37 Supervising Physician Co-Signing Physician Notes I personally examined the patient and verified all campos points of history and exam, discussed case, and agree with decision making with Dr Lc bal feels better pain still present but much less feels up to going home vitals noted nad heent nc at mmm breathing unlabored no accessory muscles good effort abd soft mild tenderness LLQ no guarding no rebound no rigidity diverticulitis w microperforation - improved on unasyn -> transition to augmentin, given microperf will Rx for 14 days total abx. PCP f/u next week, low threshold for f/u CT (default would be checking in ~2wks or if she has any worsening) probable colo in ~2-3 months. otherwise as above DVT proph - lovenox otherwise as above Resident Activity Tracking Resident Involvement: Resident Care Provided Care Provided: Adult Hospital Medicine
--- NOTE | 2023-06-09 12:43 | Billing Data ---
Date of Service June 09, 2023 Coding Level of Care Code 84181 IN/OBS DISCH 30 MIN/LESS
[2023-06-09] MEDS ORDERED: AMOXICILLIN/CLAVULANATE 875 MG TAB PO SCH (17:00)
== END 2023-06-09 14:13 | disposition home or self-care (01) | DRG 392 ==
LOC: ED 10:56 → 3W 17:33 → SUATTDRO 17:33 → 3W 21:20